=== PATIENT | female | born 1990 | race African-American/Black ===

== ENCOUNTER 2020-02-28 15:49 | Emergency (ER) | payer OTHER ==
[~2020-02-28] VITALS: Ht 152.4 cm; Wt 73.6 kg
[~2020-02-28 15:49] MED LIST: ACYC200L PO
[2020-02-28 18:09] LABS: COVID AG,FIA SOURCE NASAL SWAB
[2020-02-28 18:51] VITALS: BP 122/64
== END 2020-02-28 19:01 | disposition home or self-care (01) ==
LOC: EMS 15:49
DX: O26.891 Other specified pregnancy related conditions, first trimester (principal); F17.210 Nicotine dependence, cigarettes, uncomplicated; Z20.828 Contact with and (suspected) exposure to other viral communicable diseases; Z3A.09 9 weeks gestation of pregnancy
CPT/HCPCS: 87426

== ENCOUNTER 2020-06-27 09:59 | Observation (INO) | payer OTHER ==
[~2020-06-27] VITALS: Ht 157.5 cm; Wt 79.4 kg
[2020-06-27] MEDS ORDERED: PREN-217 PO (10:06)
[2020-06-27 11:25] VITALS: BP 108/61
== END 2020-06-27 12:05 | disposition home or self-care (01) ==
LOC: 4S 10:42
PROVIDERS: ADMIT Obstetrics & Gynecology; ATTEND Obstetrics & Gynecology
DX: O99.891 Other specified diseases and conditions complicating pregnancy (principal); M79.631 Pain in right forearm; W18.39XA Other fall on same level, initial encounter; Y93.89 Activity, other specified; Y92.89 Other specified places as the place of occurrence of the external cause
CPT/HCPCS: 59025; 76805; 81001; 99219

== ENCOUNTER 2020-06-27 12:14 | Emergency (ER) | payer OTHER ==
[~2020-06-27] VITALS: Ht 152.4 cm; Wt 79.1 kg
[~2020-06-27 12:14] MED LIST changes: +PREN-217 PO
[2020-06-27 12:19] VITALS: BP 116/50
== END 2020-06-27 13:01 | disposition left against medical advice (07) ==
LOC: EMS 12:29
DX: M25.531 Pain in right wrist (principal); Z53.21 Procedure and treatment not carried out due to patient leaving prior to being seen by health care provider